=== PATIENT | male | born 1985 | race Two or more races ===

== ENCOUNTER → 2016-12-17 | Outpatient (CLI) | payer OTHER ==
[~2016-12-17] MED LIST: ISOVUE-370 76% 100ML VIAL (Q9967) As Ordered ONE
--- NOTE | 2016-12-17 17:06 | REP ---
CT ABDOMEN AND PELVIS WITH AND WITHOUT IV CONTRAST: TECHNIQUE: Axial noncontrast images through the abdomen followed by contrast-enhanced images through the abdomen and pelvis using 100 mL Isovue 370 intravenous contrast material, with coronal and sagittal reformations. Visualized lung bases are clear. Precontrast images show no evidence of renal or ureteral calculus. No bladder calculus is seen. No gallstones are seen. Postcontrast images show the liver, spleen, adrenals, pancreas and kidneys to be normal in appearance. There is no abdominal aortic aneurysm. There is no adenopathy. There is no free air or free fluid. There is no bowel wall thickening. There is no pelvic mass. The appendix is normal. Urinary bladder is mildly distended and grossly unremarkable. IMPRESSION: Essentially negative CT abdomen and pelvis pre and post IV contrast as discussed in detail above. Signed by Saul Cazares MD 12/28/2016 08:36 A
== END ==
LOC: M RAD 14:48
PROVIDERS: ATTEND Physician Assistant
DX: N39.0 Urinary tract infection, site not specified (principal)

== ENCOUNTER → 2017-01-11 | Outpatient (REF) | payer OTHER | LOC: M SMT 17:28 | PROVIDERS: ATTEND Nurse Practitioner Women's Health | DX: R31.0 Gross hematuria (principal) ==